=== PATIENT | female | born 1960 | race Caucasian/White ===

== ENCOUNTER 2022-10-29 15:27 | Outpatient (CLI) | payer BC | END 2022-10-29 15:28 | disposition home or self-care (01) | LOC: CSHMAMMO 15:27 | PROVIDERS: ATTEND Internal Medicine | DX: Z53.9 Procedure and treatment not carried out, unspecified reason (principal) ==

== ENCOUNTER 2023-02-03 14:20 | Outpatient (CLI) | payer BC ==
[~2023-02-03 14:20] MED LIST: Iopamidol 300 61% 100 ML VIAL FS ONE; Magnevist 469MG/ML 20 ML VIAL ONE
== END 2023-02-03 14:21 | disposition home or self-care (01) ==
LOC: CSHCT 14:20
PROVIDERS: ATTEND Otolaryngology Plastic Surgery within the Head & Neck
DX: R43.1 Parosmia (principal); J38.00 Paralysis of vocal cords and larynx, unspecified; J38.3 Other diseases of vocal cords; J98.4 Other disorders of lung
CPT/HCPCS: 70491; 70553; 71260; 82565